=== PATIENT | male | born 1995 | race Caucasian/White ===

== ENCOUNTER 2016-10-28 06:17 | Emergency (ER) | payer OTHER ==
[~2016-10-28 06:17] MED LIST: HUMALOG100 UNIT/1 SC; LANTUS100 UNIT/1 SC; LOTRIMIN CREAM15 GM EXT; NEURONTIN 300300 MG PO
[2016-10-28 07:00] LABS: HEMOGLOBIN 14.1 gm/dl (14.0-17.5); RED BLOOD COUNT 4.71 M/UL (4.20-5.50); WHITE BLOOD COUNT 4.7 K/UL (4.5-11.0)
[2016-10-28 07:16] LABS: BUN/CREATININE RATIO 23 (0-10)
[2017-02-16] MEDS ORDERED: LANTUS100 UNIT/1 SQ (21:55)
[2017-02-16] MEDS ORDERED: HUMALOG100 UNIT/1 SQ ×2 (21:57→22:00)
[2017-02-16] MEDS ORDERED: NEURONTIN 300300 MG PO (21:58)
== END 2016-10-28 11:15 | disposition home or self-care (01) ==
LOC: ER1 06:17
PROVIDERS: Emergency Medicine
DX: E10.65 Type 1 diabetes mellitus with hyperglycemia (principal)
CPT/HCPCS: 36415; 80048; 82009; 82800; 82962; 85025; 96372; 99284; J1815; J7030

== ENCOUNTER 2020-12-29 06:31 | Emergency (ER) | payer OTHER ==
[~2020-12-29 06:31] MED LIST changes: +BENADRYL 25MG C25 MG PO; +HUMALOG100 UNIT/1 SQ; +LANTUS100 UNIT/1 SQ; +ZANTAC150 MG PO
[2020-12-29] MEDS ORDERED: IBUPROFEN800 MG PO (10:40)
== END 2020-12-29 10:45 | disposition home or self-care (01) ==
LOC: ER1 06:31
DX: J02.9 Acute pharyngitis, unspecified (principal); E10.9 Type 1 diabetes mellitus without complications; Z79.4 Long term (current) use of insulin; F17.290 Nicotine dependence, other tobacco product, uncomplicated; Z20.822 Contact with and (suspected) exposure to COVID-19
CPT/HCPCS: 82962; 87081; 87880; 99283; U0002